=== PATIENT | female | born 1975 | race Hispanic/Latino ===

== ENCOUNTER 2017-04-07 15:30 | Outpatient (CLI) | payer BC | END 2017-04-07 15:31 | disposition home or self-care (01) | LOC: BICMAMMO 15:30 | PROVIDERS: ATTEND Family Medicine | DX: Z12.31 Encounter for screening mammogram for malignant neoplasm of breast (principal) | CPT/HCPCS: 77063 ==

== ENCOUNTER 2018-04-08 14:04 | Outpatient (CLI) | payer BC ==
--- NOTE | 2018-04-08 17:19 | MMO ---
BILATERAL MAMMOGRAMS: DATE: 04/08/18 HISTORY: Screening mammography. COMPARISON: Multiple outside exams from [place] dating back to 10/05/14. FINDINGS: Heterogeneously dense fibroglandular tissue. No dominant mass or suspicious calcifications. The study was evaluated with the assistance of computer-aided detection. IMPRESSION: BIRADS 1: Negative Suggest routine follow-up. POS: [facility]
== END 2018-04-08 14:05 | disposition home or self-care (01) ==
LOC: SCSMAMMO 14:04
PROVIDERS: ATTEND Family Medicine
DX: Z12.31 Encounter for screening mammogram for malignant neoplasm of breast (principal)
CPT/HCPCS: 77067

== ENCOUNTER 2018-11-14 20:53 | Emergency (ER) | payer BC ==
[2018-11-14] MEDS ORDERED: Adacel (T-DAP) 0.5 ML SYRINGE ONE (21:54)
== END 2018-11-14 22:30 | disposition home or self-care (01) ==
LOC: SCSER 20:53
DX: S90.471A Other superficial bite of right great toe, initial encounter (principal); I10 Essential (primary) hypertension; F32.9 Major depressive disorder, single episode, unspecified; Z79.899 Other long term (current) drug therapy; W59.11XA Bitten by nonvenomous snake, initial encounter
CPT/HCPCS: 90471; 90715